=== PATIENT | female | born 1965 | race Caucasian/White ===

== ENCOUNTER 2018-05-28 00:38 | Emergency (ER) | payer MEDICARE, OTHER ==
[~2018-05-28] VITALS: Ht 167.6 cm; Wt 49.9 kg
[~2018-05-28 00:38] MED LIST: ALBU4; ALBU90OI INH; ALBU90OI6 INH; ALBU90OI61 INH; ALPR.25; AMIT50 PO; ARIP10 PO; ASPI81CH PO; AZAT50 PO; Advil200 M1 PO; BACL10 PO; BENZ1; BUPR150ER; BUSP10 PO; BUSP5 PO; Bactrim 400-801 EACH PO; Benadryl 50 mg50 MG PO; CHOL10002 PO; CLON.5 PO; CLON1; COLCHICINE0.6 MG PO; CYAN100 PO; CYCL10 PO; Cyclobenzaprine5 MG PO; DIPH50 PO; DOXE50 PO; DULO60 PO; EFFEXOR; ESCI10 PO; ESCI20 PO; ESTR2 PO; Elmiron100 MG PO; FLUSAL1005 INH; FLUSAL2505; FLUSAL2505 IH; FLUSAL2505 INH; Fiorinal1 EA PO; GABA100 PO; GABA300 PO; HYDACE5 PO; HYDACE5325 PO; HYDCHL12.5 PO; HYDR1TAB94 PO; IBUP800 PO; LAMICTAL; LEVSOD50 PO; LIDO5TO TOP; LIDOCAINE700 MG TP; LIOT50; LISI20 PO; LISI5 PO; LORA1 PO; LOSA50 PO; LOSARTAN POTAS100 MG PO; MELO7.5 PO; MULVITMINE PO; Mobic7.5 MG PO; Naprosyn500 MG PO; OLAN10 PO; OLAN5; OMEP20ER PO; OMEP40CA12 PO; OXYACE5T; PENTOSAN POLYSULFATE 100 MG; PIRO20 PO; PRAZ2 PO; PRAZ5 PO; PRED5 PO; PROACE100; PRODEXEL PO; PROM25 PO; PROP80; PYRIDIUM PO; Prednisone20 MG PO; RANI150 PO; RISP4; SULTRIDS PO; SYN; Sulfamethoxazo1 EAC4; Synthroid50 MCG PO; TIOT18 INH; TOPI25 PO; TOPI50 PO; TRAM50 PO; TRAZ100; Ultram50 MG PO; VITAMIN D32000 UNI1 PO; Verotin-Gr Cap1 EACH; Verotin-Gr Cap1 EACH PO; ZIPR20; ZIPR80; Zovirax800 MG PO; Zyprexa10 MG PO; [UNRECOGNIZED DRUG - OTHER]; [UNRECOGNIZED DRUG - REMARK]; [UNRECOGNIZED DRUG - REMARK]
[2018-05-28] MEDS ORDERED: LORA1 PO (01:22)
[2018-06-02] MEDS ORDERED: IBUP600 PO (00:01)
[2018-06-02] MEDS ORDERED: CYCL10 PO (00:01)
[2018-06-02] MEDS ORDERED: AMLO5 PO (00:02)
[2018-06-02] MEDS ORDERED: ESCI20 PO (00:02)
[2018-06-02] MEDS ORDERED: Veetids 500500 MG PO (00:24)
== END 2018-05-28 08:45 | disposition home or self-care (01) ==
LOC: ER 00:38
DX: R30.0 Dysuria (principal); I10 Essential (primary) hypertension; F31.9 Bipolar disorder, unspecified; F17.210 Nicotine dependence, cigarettes, uncomplicated; Z88.5 Allergy status to narcotic agent; Z79.899 Other long term (current) drug therapy
CPT/HCPCS: 81000; 99283

== ENCOUNTER 2018-06-27 01:52 | Emergency (ER) | payer MEDICARE, OTHER ==
[~2018-06-27] VITALS: Ht 167.6 cm; Wt 81.7 kg
[~2018-06-27 01:52] MED LIST changes: +AMLO5 PO; +IBUP600 PO; +Veetids 500500 MG PO; +Vistaril50 MG PO
[2018-06-27] MEDS ORDERED: IBUP400 PO (03:13)
== END 2018-06-27 03:23 | disposition home or self-care (01) ==
LOC: ER 01:52
DX: K08.89 Other specified disorders of teeth and supporting structures (principal); Z88.5 Allergy status to narcotic agent; Z79.899 Other long term (current) drug therapy; I10 Essential (primary) hypertension; F32.9 Major depressive disorder, single episode, unspecified; F31.9 Bipolar disorder, unspecified; F17.210 Nicotine dependence, cigarettes, uncomplicated
CPT/HCPCS: 99282

== ENCOUNTER 2018-07-04 22:46 | Emergency (ER) | payer MEDICARE, OTHER ==
[~2018-07-04] VITALS: Ht 167.6 cm; Wt 69.4 kg
[~2018-07-04 22:46] MED LIST changes: +IBUP400 PO
[2018-07-04] MEDS ORDERED: ESTRADIOL1 MG PO (23:10)
[2018-07-04] MEDS ORDERED: OMEPRAZOLE20 MG PO (23:11)
[2018-07-04] MEDS ORDERED: ARIP20 PO (23:11)
[2018-07-04] MEDS ORDERED: AMLO10 PO (23:11)
[2018-07-04 23:37] LABS: Alanine Aminotransfer (ALT/SGP 25 U/L (12-78); Albumin, Blood 3.7 g/dL (3.4-5.0); Albumin/Globulin Ratio 1.1 (0.8-1.8); Alk Phos 59 U/L (50-136); Anion Gap 7 mmol/L (6-16); Aspartate Aminotrans (AST/SGOT 20 U/L (12-37); Bilirubin, Total 0.3 mg/dL (0.1-1.0); Blood Urea Nitrogen 9 mg/dL (8-24); Bun/Creatinine Ratio 10.2 (12.0-20.0); CO2, Blood 27 mmol/L (21-32); Calcium, Blood 8.3 mg/dL (8.5-10.1); Chloride, Blood 105 mmol/L (98-108); Creatinine, Blood 0.89 mg/dL (0.40-1.00); Globulin, Blood 3.4 g/dL (2.2-4.0); Glomerular Filtration Rate >60 (60-); Glucose, Blood 127 mg/dL (70-99); Potassium, Blood 3.2 mmol/L (3.5-5.5); Sodium, Blood 139 mmol/L (136-145); Total Protein, Blood 7.1 g/dL (6.4-8.2); Troponin I <0.015 ng/mL (0.000-0.040)
[2018-07-04 23:53] LABS: BASOPHILS ABSOLUTE AUTO 0.02 K/mm3 (0.00-0.23); BASOPHILS PERCENT AUTO 0 % (0-2); EOSINOPHILS ABSOLUTE AUTO 0.26 K/mm3 (0.00-0.68); EOSINOPHILS PERCENT AUTO 3 % (0-6); Hematocrit 36.5 % (33.0-51.0); Hemoglobin 12.7 g/dL (11.5-16.0); IMMATURE GRAN ABSOLUTE AUTO 0.02 K/mm3 (0.00-0.10); IMMATURE GRAN PERCENT AUTO 0 % (0-1); LYMPHOCYTES ABSOLUTE AUTO 1.68 K/mm3 (0.84-5.20); LYMPHOCYTES PERCENT AUTO 17 % (21-46); MONOCYTES ABSOLUTE AUTO 0.54 K/mm3 (0.16-1.47); MONOCYTES PERCENT AUTO 6 % (4-13); Mean Corpuscular HGB 32.7 pg (26.0-34.0); Mean Corpuscular HGB Conc 34.8 g/dL (31.5-36.5); Mean Corpuscular Volume 94 fL (80-100); NEUTROPHILS ABSOLUTE AUTO 7.17 K/mm3 (1.96-9.15); NEUTROPHILS PERCENT AUTO 74 % (41-73); Platelet Count 227 K/mm3 (150-400); RDW Coefficient Variation 12.3 % (11.7-14.2); RDW Standard Deviation 42.5 fL (35.1-46.3); Red Blood Cell Count 3.88 M/mm3 (3.80-5.20); White Blood Cell Count 9.69 K/mm3 (4.00-11.30)
== END 2018-07-05 02:44 | disposition home or self-care (01) ==
LOC: ER 22:46
PROVIDERS: Emergency Medicine
DX: R07.9 Chest pain, unspecified (principal); F31.9 Bipolar disorder, unspecified; I10 Essential (primary) hypertension; J44.9 Chronic obstructive pulmonary disease, unspecified; F17.210 Nicotine dependence, cigarettes, uncomplicated; Z88.5 Allergy status to narcotic agent; Z79.899 Other long term (current) drug therapy
CPT/HCPCS: 36415; 71046; 80053; 84484; 85025; 93005; 93010; 99284-25

== ENCOUNTER 2019-04-19 12:29 | Emergency (ER) | payer MEDICARE, OTHER ==
[~2019-04-19] VITALS: Ht 167.6 cm; Wt 79.4 kg
[~2019-04-19 12:29] MED LIST changes: +AMLO10 PO; +ARIP20 PO; +ESTRADIOL1 MG PO; +OMEPRAZOLE20 MG PO
[2019-04-19] MEDS ORDERED: HYDPAM25 PO (13:04)
[2019-04-19] MEDS ORDERED: CYCL10 PO ×2 (13:05→13:07)
[2019-04-19] MEDS ORDERED: Prilosec Otc20 MG PO (13:07)
[2019-04-19] MEDS ORDERED: Vistaril25 MG PO (13:07)
== END 2019-04-19 13:12 | disposition home or self-care (01) ==
LOC: ER 12:29
DX: F41.9 Anxiety disorder, unspecified (principal); M54.9 Dorsalgia, unspecified; G89.29 Other chronic pain; Z76.0 Encounter for issue of repeat prescription; Z79.899 Other long term (current) drug therapy
CPT/HCPCS: 99281

== ENCOUNTER → 2019-07-19 | Outpatient (CLI) | payer MEDICARE, OTHER ==
[~2019-07-19] MED LIST changes: +HYDPAM25 PO; +Prilosec Otc20 MG PO; +Vistaril25 MG PO
[2019-07-19 19:58] LABS: Bilirubin, Urine Neg (Neg); Blood, Urine Neg (Neg); Glucose Qualitative, Urine Neg (Neg); Ketones, Urine Neg (Neg); Leukocyte Esterase, Urine Neg (Neg); Nitrite, Urine Neg (Neg); Protein, Urine Neg (Neg); Urobilinogen, Urine NORM (Normal)
[2019-07-19 20:31] LABS: Color, Urine Yellow (P-Yellow)
[2019-07-19 20:32] LABS: Appearance, Urine Clear (Clear)
== END | disposition home or self-care (01) ==
LOC: LAB SHORT 19:26 → LAB 19:26
PROVIDERS: Nurse Practitioner Family
DX: M54.5 Low back pain (principal)
CPT/HCPCS: 81003

== ENCOUNTER 2021-01-19 10:01 | Day surgery (SDC) | payer OTHER ==
[~2021-01-19] VITALS: Ht 167.6 cm; Wt 86.9 kg
--- NOTE | 2021-01-19 10:59 | NUR ---
Ambulatory in Day Surgery History, Chart, Medications and Allergies reviewed before start of procedure. Patient confirms NPO status and agrees with scheduled surgery. Pre-Op teaching done. Pt verbalizes understanding. Patient States Post-Procedure ride home has been arranged.
--- NOTE | 2021-01-19 11:01 | NUR ---
01/19/21 1101 Edwige Simon History, Chart, Medications and Allergies reviewed before start of procedure. Patient confirms NPO status and agrees with scheduled surgery. PATIENT DETERMINED TO BE ASA APPROPRIATE FOR PROPOFOL SEDATION PRIOR TO START OF PROCEDURE BY . 3-LEAD EKG REVIEWED WITH PHYSICIAN PRIOR TO START OF PROCEDURE. MONITOR INTACT WITH CONTINUOUS PULSE OXIMETRY AND INTERMITTENT BP.
[2021-01-19] MEDS ORDERED: ESCI10 (11:05)
[2021-01-19] MEDS ORDERED: ARIP20 PO (11:05)
[2021-01-19] MEDS ORDERED: AMLODIPINE-OLM1 EAC4 PO (11:06)
[2021-01-19] MEDS ORDERED: GABA300 PO (11:06)
[2021-01-19] MEDS ORDERED: IBUP800 PO (11:07)
[2021-01-19] MEDS ORDERED: IMITREX25 MG (11:07)
[2021-01-19] MEDS ORDERED: ESTRADIOL (11:08)
[2021-01-19] MEDS ORDERED: ALBU90OI (11:09)
[2021-01-19] MEDS ORDERED: FLUT1DIS5 (11:10)
[2021-01-19] MEDS ORDERED: FAMO20 (11:10)
[2021-01-19] MEDS ORDERED: COLCHICINE (11:11)
[2021-01-19] MEDS ORDERED: BACL10 PO (11:11)
[2021-01-19] MEDS ORDERED: LOSA50 (11:12)
--- NOTE | 2021-01-19 12:04 | NUR ---
Patient up to Ambulate independently. Gait steady. Discharge instructions reviewed with patient. Patient verbalizes understanding. Copy given to patient to take home. Discharged via wheelchair to private car for ride home WITH [facility]
== END 2021-01-19 23:01 | disposition home or self-care (01) ==
LOC: ORSCMMR 10:01 → ORD 11:00 → ORSCMMR 23:01
PROVIDERS: Internal Medicine Gastroenterology
PROC: 0DB78ZX Excision of Stomach, Pylorus, Via Natural or Artificial Opening Endoscopic, Diagnostic (ICD-10-PCS; principal; 2021-01-19 11:00)
PROC: 0DB58ZX Excision of Esophagus, Via Natural or Artificial Opening Endoscopic, Diagnostic (ICD-10-PCS; principal; 2021-01-19 11:00)
PROC: 0DB48ZX Excision of Esophagogastric Junction, Via Natural or Artificial Opening Endoscopic, Diagnostic (ICD-10-PCS; principal; 2021-01-19 11:00)
DX: R10.13 Epigastric pain (principal); K21.9 Gastro-esophageal reflux disease without esophagitis; K25.9 Gastric ulcer, unspecified as acute or chronic, without hemorrhage or perforation; K44.9 Diaphragmatic hernia without obstruction or gangrene; E03.9 Hypothyroidism, unspecified; J44.9 Chronic obstructive pulmonary disease, unspecified; Z79.899 Other long term (current) drug therapy; F17.210 Nicotine dependence, cigarettes, uncomplicated
CPT/HCPCS: 88305; 88342; A9270; J2250; J2704; J7120

== ENCOUNTER 2021-08-27 11:04 | Emergency (ER) | payer OTHER ==
[~2021-08-27] VITALS: Ht 167.6 cm; Wt 88.5 kg
[~2021-08-27 11:04] MED LIST changes: +ALBU90OI; +AMLODIPINE-OLM1 EAC4 PO; +COLCHICINE; +ESCI10; +ESTRADIOL; +FAMO20; +FLUT1DIS5; +IMITREX25 MG; +LOSA50
[2021-08-27 11:25] LABS: BASOPHILS ABSOLUTE AUTO 0.03 K/mm3 (0.00-0.23); BASOPHILS PERCENT AUTO 0 % (0-2); EOSINOPHILS PERCENT AUTO 1 % (0-6); Hematocrit 39.6 % (33.0-51.0); Hemoglobin 13.4 g/dL (11.5-16.0); IMMATURE GRAN ABSOLUTE AUTO 0.03 K/mm3 (0.00-0.10); IMMATURE GRAN PERCENT AUTO 0 % (0-1); LYMPHOCYTES ABSOLUTE AUTO 2.57 K/mm3 (0.84-5.20); LYMPHOCYTES PERCENT AUTO 33 % (21-46); MONOCYTES ABSOLUTE AUTO 0.43 K/mm3 (0.16-1.47); MONOCYTES PERCENT AUTO 6 % (4-13); Mean Corpuscular HGB 30.4 pg (26.0-34.0); Mean Corpuscular HGB Conc 33.8 g/dL (31.5-36.5); Mean Corpuscular Volume 90 fL (80-100); Mean Platelet Volume 9.5 fL (9.1-12.4); NEUTROPHILS ABSOLUTE AUTO 4.69 K/mm3 (1.96-9.15); NEUTROPHILS PERCENT AUTO 60 % (41-73); Platelet Count 372 K/mm3 (150-400); RDW Coefficient Variation 13.1 % (11.7-14.2); RDW Standard Deviation 42.6 fL (35.1-46.3); Red Blood Cell Count 4.41 M/mm3 (3.80-5.20); White Blood Cell Count 7.85 K/mm3 (4.00-11.30)
[2021-08-27 11:47] LABS: Alanine Aminotransfer (ALT/SGP 24 U/L (12-78); Albumin, Blood 3.2 g/dL (3.4-5.0); Albumin/Globulin Ratio 0.8 (0.8-1.8); Alk Phos 90 U/L (50-136); Anion Gap 6 mmol/L (6-16); Aspartate Aminotrans (AST/SGOT 18 U/L (12-37); Bilirubin, Total 0.3 mg/dL (0.1-1.0); Blood Urea Nitrogen 6 mg/dL (8-24); Bun/Creatinine Ratio 8.6 (12.0-20.0); CO2, Blood 25 mmol/L (21-32); Calcium, Blood 8.6 mg/dL (8.5-10.1); Chloride, Blood 105 mmol/L (98-108); Globulin, Blood 4.2 g/dL (2.2-4.0); Glomerular Filtration Rate >60 (60-); Glucose, Blood 102 mg/dL (70-99); Potassium, Blood 3.5 mmol/L (3.5-5.5); Sodium, Blood 136 mmol/L (136-145); Total Protein, Blood 7.4 g/dL (6.4-8.2); Troponin I <0.015 ng/mL (0.000-0.040)
[2021-08-27] MEDS ORDERED: IBU600 MG PO (12:20)
== END 2021-08-27 12:45 | disposition home or self-care (01) ==
LOC: ER 11:04
PROVIDERS: Emergency Medicine
DX: R07.89 Other chest pain (principal); G43.909 Migraine, unspecified, not intractable, without status migrainosus; I10 Essential (primary) hypertension; J44.9 Chronic obstructive pulmonary disease, unspecified; K21.9 Gastro-esophageal reflux disease without esophagitis; Z79.899 Other long term (current) drug therapy
CPT/HCPCS: 36415; 71045; 80053; 84484; 85025; 93005; 93010; 96374; 99284-25; A9270; J1885

== ENCOUNTER → 2022-07-05 | Outpatient (CLI) | payer OTHER ==
[~2022-07-05] MED LIST changes: +IBU600 MG PO
== END | disposition home or self-care (01) ==
LOC: LAB SHORT 12:38 → LAB 12:38
DX: R30.9 Painful micturition, unspecified (principal)
CPT/HCPCS: 87086

== ENCOUNTER → 2025-01-24 | Outpatient (CLI) | payer OTHER ==
[2025-01-24 12:29] LABS: BASOPHILS ABSOLUTE AUTO 0.03 K/mm3 (0.00-0.23); BASOPHILS PERCENT AUTO 0 % (0-2); EOSINOPHILS ABSOLUTE AUTO 0.03 K/mm3 (0.00-0.68); EOSINOPHILS PERCENT AUTO 0 % (0-6); Hematocrit 37.3 % (33.0-51.0); Hemoglobin 12.6 g/dL (11.5-16.0); IMMATURE GRAN ABSOLUTE AUTO 0.05 K/mm3 (0.00-0.10); IMMATURE GRAN PERCENT AUTO 1 % (0-1); LYMPHOCYTES PERCENT AUTO 19 % (21-46); MONOCYTES ABSOLUTE AUTO 0.49 K/mm3 (0.16-1.47); MONOCYTES PERCENT AUTO 5 % (4-13); Mean Corpuscular HGB 30.2 pg (26.0-34.0); Mean Corpuscular HGB Conc 33.8 g/dL (31.5-36.5); Mean Corpuscular Volume 89 fL (80-100); Mean Platelet Volume 9.1 fL (9.1-12.4); NEUTROPHILS ABSOLUTE AUTO 7.27 K/mm3 (1.96-9.15); NEUTROPHILS PERCENT AUTO 75 % (41-73); Platelet Count 390 K/mm3 (150-400); RDW Coefficient Variation 13.2 % (11.7-14.2); RDW Standard Deviation 43.5 fL (35.1-46.3); Red Blood Cell Count 4.17 M/mm3 (3.80-5.20); White Blood Cell Count 9.67 K/mm3 (4.00-11.30)
[2025-01-24 12:38] LABS: Albumin, Blood 3.7 g/dL (3.4-5.0); Bilirubin, Total 0.3 mg/dL (0.1-1.0); Bun/Creatinine Ratio 8.1 (12.0-20.0); Calcium, Blood 8.8 mg/dL (8.5-10.1); Creatinine, Blood 0.62 mg/dL (0.40-1.00); Globulin, Blood 3.8 g/dL (2.2-4.0); Potassium, Blood 3.5 mmol/L (3.5-5.5); Total Protein, Blood 7.5 g/dL (6.4-8.2)
== END | disposition home or self-care (01) ==
LOC: LAB 12:25 → LAB SHORT 12:25
PROVIDERS: Emergency Medicine
DX: K64.4 Residual hemorrhoidal skin tags (principal)
CPT/HCPCS: 80053; 85025